=== PATIENT | female | born 1995 | race Two or more races ===

== ENCOUNTER 2022-03-29 23:10 | Emergency (ER) | payer MEDICAID, SELFPAY ==
[2022-03-29 23:11] VITALS: BP 147/102; PULSE 106; RESP 16; TEMP 36.8; O2SAT 100; BMI 26.5
--- NOTE | 2022-03-29 23:42 | EX.ED.DYSGE1 ---
HPI History of Present Illness Chief Complaint: Other, Pain/Inj Informant: patient Onset/Context/Timing Onset: Days (5) Context: Gradual Onset Timing: Continuous Quality: Sharp Location: Cervical paraspinal muscles, worse on the right Worsened by: Movement Relieved by: Nothing Narrative Narrative: Presents with neck pain that has been getting worse over the past 5 days. Patient states she woke up with the pain 4 days ago. Patient states it has been constant. Patient denies any trauma or injury. Patient describes her pain as sharp. Patient states it is worse with any movement. Patient states it is also worse with palpation. Patient states nothing makes it any better. Patient denies any paresthesias or weakness. Patient denies any radiation of the pain. [facility] Medical History (Updated 03/29/22 @ 23:[address] Joce Marie, ) Anxiety Depression Home Medications cyclobenzaprine 10 mg tablet 10 mg PO QHS PRN PRN Muscle Spasm #10 TABLETS 03/29/22 [Rx Last Taken Unknown] naproxen 500 mg tablet 500 mg PO BID PRN #20 tabs 03/29/22 [Rx Last Taken Unknown] Allergy/AdvReac Type Severity Reaction Status Date / Time Penicillins Allergy PT UNSURE Verified 03/29/22 23:13 OF REACTION Surgical History no surgical history no surgical history ROS ROS ED Constitutional Constitutional ED: Denies chills or fever(s) Eyes Eyes: Denies blurry vision or change in vision ENT ENT ED: Denies rhinorrhea or sore throat Cardiovascular Cardiovascular: Denies chest pain or palpitations Respiratory/Chest Respiratory/Chest: Denies cough or dyspnea Gastrointestinal Gastrointestinal: Denies nausea or vomiting Genitourinary Genitourinary ED: Denies dysuria or hematuria Musculoskeletal Musculoskeletal: Reports neck pain; Denies back pain Integumentary Denies abscess or rash Neurologic Neurologic: Reports headache(s); Denies weakness Allergic/Immunologic Allergic/Immunologic ED: Denies mouth swelling or urticaria EXAM Physical Exam Const Vital Signs: 03/29/22 23:11 Temperature 98.2 F Temperature Source Temporal Pulse Rate 106 H Respiratory Rate 16 Blood Pressure 147/102 H Blood Pressure Mean 117 Pulse Ox 100 Oxygen Delivery Method Room Air Positive well nourished and well developed General Appearance ED: well developed and NAD HEENT Reports moist mucous membranes Neck Neck Narrative: There is tenderness and spasm of the cervical paraspinal muscles, worse on the right. There is no midline tenderness. There is no bony crepitance or step-off. There is no edema or ecchymosis. Range of motion was slightly limited in all motions of the cervical spine secondary to pain. Strength is 5/5 bilaterally in the upper and lower extremities. There are no sensory deficits noted. Radial pulses are equal bilaterally. General: tenderness Resp normal respiratory effort and clear to auscultation bilaterally Cardio regular rate and regular rhythm Neuro oriented x3, CN's II-XII intact bilaterally and no sensory deficits noted Sensorium / Orientation: alert Motor Exam: strength 5/5 throughout Psych mental status grossly normal MDM MDM MDM Narrative Medical decision making narrative: Differential diagnosis includes musculoskeletal strain and cervical sprain. Since the patient did not have any trauma or injury to her neck, I do not feel that there is a fracture. I do not feel x-rays are necessary at this time because of this. Patient is agreeable with this. Patient was given injection of Toradol and Norflex here. Patient was given a prescription for Naprosyn and Flexeril. Patient was instructed to continue using ice to the area. Patient was instructed to follow-up with her primary care physician in 5 to 7 days. Patient understood and was agreeable with the plan. All questions were answered. Discharge Plan Triage Chief Complaint: Other, Pain/Inj ED Provider: Joce Marie Dx/Rx/DC Orders Clinical Impression: Acute cervical myofascial strain, Tobacco use Instructions: ED Neck Sprain or Strain Prescriptions: New cyclobenzaprine [cyclobenzaprine] 10 mg tablet 10 mg PO QHS PRN PRN (Reason: Muscle Spasm) Qty: 10 0RF naproxen 500 mg tablet 500 mg PO BID PRN Qty: 20 0RF Primary Care Provider: NOT,DEFINED Referrals: Briseyda Stanford [Non-Staff] - 5-7 Days NOT,DEFINED [Primary Care Provider] - Disposition Disposition: Home, Self Care
[2022-03-30] MEDS: Orphenadrine 60 MG/2 ML Ampul IM (00:18)
[2022-03-30] MEDS: Ketorolac 60 MG/2 ML Vial IM (00:19)
== END 2022-03-30 00:24 | disposition home or self-care (01) ==
PROVIDERS: Emergency Provider Emergency Medicine; Visit Provider Emergency Medicine
DX: S16.1XXA Strain of muscle, fascia and tendon at neck level, initial encounter (principal); Z72.0 Tobacco use
CPT/HCPCS: 96372; 99282